=== PATIENT | male | born 1960 | race Caucasian/White ===

== ENCOUNTER 2019-01-20 19:44 | Emergency (ER) | payer MEDICAID ==
[~2019-01-20] VITALS: Ht 185.4 cm; Wt 86.2 kg
[2019-01-20] MEDS ORDERED: CLOP75TA15 PO (21:02)
[2019-01-20] MEDS ORDERED: ISOS30TA6 PO (21:02)
[2019-01-20] MEDS ORDERED: AMLO5TAB4 PO (21:02)
[2019-01-20] MEDS ORDERED: FAMO20TA8 PO (21:02)
[2019-01-20] MEDS ORDERED: ASPI-605 PO (21:02)
[2019-01-20] MEDS ORDERED: ATOR40TA PO (21:02)
--- NOTE | 2019-01-20 21:40 | NUR ---
US at bedside.
--- NOTE | 2019-01-20 23:01 | NUR ---
Patient discharged to home in stable conditon. Written and verbal after care instructions given. Patient verbalizes understanding of instructions. WALKED OUT OF ER WITH NO DISTRESS NOTED
== END 2019-01-20 23:03 | disposition home or self-care (01) ==
LOC: ER 19:49
DX: R60.9 Edema, unspecified (principal); Z79.01 Long term (current) use of anticoagulants; Z79.82 Long term (current) use of aspirin; Z79.899 Other long term (current) drug therapy
CPT/HCPCS: A4663

== ENCOUNTER 2019-02-13 18:37 | Emergency (ER) | payer MEDICAID ==
[~2019-02-13] VITALS: Ht 188 cm; Wt 90.7 kg
[~2019-02-13 18:37] MED LIST: AMLO5TAB4 PO; ASPI-605 PO; ATOR40TA PO; CLOP75TA15 PO; FAMO20TA8 PO; ISOS30TA6 PO
--- NOTE | 2019-02-13 19:00 | NUR ---
Pt walked into ER with c/o right lower leg edema x 3 weeks. States he went to ER and saw his primary care provider already. Denies any chest pain or shortness of breath. No acute distress noted. Denies any injury to area.
[2019-02-13 19:26] LABS: BASOPHILS # (AUTO) 0.1 K/uL (0.0-8.0); EOSINOPHILS # (AUTO) 0.2 K/uL (0.0-0.7); HEMATOCRIT 35.3 % (36.7-47.1); HEMOGLOBIN 11.6 g/dL (12.5-16.3); LYMPHOCYTES # (AUTO) 1.8 K/uL (20.0-40.0); LYMPHOCYTES % (AUTO) 32.5 % (20.5-51.5); MEAN CORPUSCULAR HEMOGLOBIN 26.3 uug (23.8-33.4); MEAN CORPUSCULAR HGB CONC 33 g/dL (32.5-36.3); MEAN CORPUSCULAR VOLUME 80.3 fL (73.0-96.2); MONOCYTES # (AUTO) 0.5 K/uL (2.0-10.0); MONOCYTES % (AUTO) 9.6 % (0.0-11.0); NEUTROPHILS % (AUTO) 53.9 % (38.5-71.5); PLATELET COUNT (AUTO) 247 K/uL (152-348); WHITE BLOOD COUNT (AUTO) 5.6 K/uL (3.6-10.2)
[2019-02-13 19:36] LABS: CREATININE 1.1 mg/dL (0.6-1.3); POTASSIUM 3.6 mmol/L (3.5-5.1)
[2019-02-13 19:49] LABS: BILIRUBIN,TOTAL 0.4 mg/dL (0.2-1.0); TOTAL PROTEIN, SERUM 6.7 g/dL (6.4-8.2)
[2019-02-13 20:09] LABS: THYROID STIMULATING HORMONE 3.988 mIU/mL (0.358-3.740)
--- NOTE | 2019-02-13 20:45 | NUR ---
Lab work done. Ultrasound done. Pending results.
--- NOTE | 2019-02-13 21:23 | NUR ---
Patient eloped from facility. ER physician notified.
== END 2019-02-13 21:29 | disposition left against medical advice (07) ==
LOC: ER 18:40
DX: R60.9 Edema, unspecified (principal); Z79.82 Long term (current) use of aspirin; Z79.01 Long term (current) use of anticoagulants; Z79.899 Other long term (current) drug therapy
CPT/HCPCS: 36415; 84443; 84550; 85025; A4663